=== PATIENT | female | born 1955 | race African-American/Black ===

== ENCOUNTER 2020-01-25 19:51 | Inpatient (IN) ==
[2020-01-25] MEDS ORDERED: SODIUM CHLORIDE 0.9% 1,000 ML IV STA (20:46)
[2020-01-25 21:10] LABS: ABG Base Excess 5.1 MMOL/L (-2.5-2.5); ABG HCO3 28.9 MMOL/L (20-26); ABG Oxygen Saturation 97.7 % (95-100); ABG PCO2 39.8 MM HG (35-48); ABG PH 7.479 (7.35-7.45); ABG PO2 103.6 MM HG (80-95); ABG TCO2 30.1 MMOL/L (23-27); Allen Test Positive
[2020-01-25 21:16] LABS: Basophils % 0.1 % (0.0-0.8); Hematocrit 36.9 VOL% (35.7-47.0); Hemoglobin 12.1 GM/DL (12.0-16.0); Immature Granulocytes % 0.9 %; Immature Granulocytes Absolute 0.09 #; Lymphocytes # 0.6 10*3/uL (1.4-4.0); Lymphocytes % 5.5 % (21.3-54.2); Mean Corpuscular HGB Conc 32.8 GM/DL (32-36); Mean Corpuscular Volume 71.2 FL (87-102); Mean Platelet Volume 12.7 FL (9.6-12.0); Monocytes % 2.5 % (1.7-12.7); Platelet Count 271 T/CUMM (130-400); Red Blood Count 5.18 MC/CUMM (3.8-5.5); Red Cell Distribution Width 14.7 % (9.3-17.3); White Blood Count 10.2 T/CUMM (4-12)
[2020-01-25 21:37] LABS: Albumin 2.4 G/DL (3.4-5.0); Bilirubin,Total 0.4 MG/DL (0.2-1.0); Calcium 8.6 MG/DL (8.5-10.1); Ferritin 415.5 ng/ml (8-252); Osmolality,Calculated 285.7 MOS/KG (273-304); Total Protein 7.8 G/DL (6.4-8.3)
[2020-01-25 22:05] LABS: Bilirubin,Urine Negative (Negative); Blood, Urine Negative (Negative); Glucose,Urine (UA) >=500 mg/dL (Negative); Ketones,Urine 5 mg/dL (Negative); Mucus,Urine Occasional /LPF (Occasional); Nitrite,Urine Negative (Negative); Protein,Urine Negative; RBC,Urine 4 /HPF (0-4); Squamous Epithelial Cell,Urine Occasional /HPF (0-10); Urine Appearance CLEAR (Clear); Urine Color Straw (Yellow); Urine Specific Gravity 1.027 (1.001-1.035); Urine Urobilinogen < 2.0 EU/DL (0.2-1.0); WBC,Urine <1 /HPF (0-6)
[2020-01-25] MEDS ORDERED: INSULIN REGULAR 100 UNIT/ML IV STA (22:53)
[2020-01-25] MEDS ORDERED: DOCUSATE SODIUM 100 MG CAPSULE PO PRN (23:02)
[2020-01-25] MEDS ORDERED: ONDANSETRON 4 MG/2 ML VIAL IV PRN (23:02)
[2020-01-25] MEDS ORDERED: GLUCAGON 1 MG VIAL IM PRN ×2 (23:02)
[2020-01-25] MEDS ORDERED: ZALEPLON 5 MG CAPSULE PO PRN (23:02)
[2020-01-25] MEDS ORDERED: DEXTROSE 50% 25 GM/50 ML VIAL IV PRN ×2 (23:02)
[2020-01-25] MEDS ORDERED: hydrALAZINE 20 MG/1 ML VIAL IV PRN (23:02)
[2020-01-25] MEDS ORDERED: ACETAMINOPHEN 325 MG TABLET PO PRN (23:02)
[2020-01-25] MEDS ORDERED: guaiFENesin/DM ER 600-30 MG TABLET PO PRN (23:02)
[2020-01-25] MEDS ORDERED: diphenhydrAMINE CAP 25 MG CAPSULE PO PRN (23:02)
[2020-01-25] MEDS ORDERED: NICOTINE 21 MG/24 HR PATCH TRANSDERM PRN (23:02)
[2020-01-25] MEDS ORDERED: AZITHROMYCIN INJ 500 MG in SODIUM CHLORIDE 0.9% 250 ML IV SCH (23:30)
[2020-01-25] MEDS: cefTRIAXone 1,000 MG in SYRINGE 1 EACH IV SCH (23:31)
[2020-01-26] MEDS: AZITHROMYCIN 250 MG TABLET PO SCH ×2 (01:07→21:52)
[2020-01-26] MEDS: SODIUM CHLORIDE 0.9% 1,000 ML IV SCH ×2 (01:08→12:33)
[2020-01-26] MEDS ORDERED: INFLUENZA VIRUS VACCINE 0.5 ML SYRINGE IM ONE (01:09)
[2020-01-26] MEDS ORDERED: PNEUMOCOCCAL VACCINE (13 VALENT) 0.5 ML SYRINGE IM ONE (01:15)
[2020-01-26 04:57] LABS: Basophils % 0.1 % (0.0-0.8); Hematocrit 33.3 VOL% (35.7-47.0); Hemoglobin 10.9 GM/DL (12.0-16.0); Immature Granulocytes % 0.8 %; Immature Granulocytes Absolute 0.08 #; Lymphocytes # 1.2 10*3/uL (1.4-4.0); Lymphocytes % 12.4 % (21.3-54.2); Mean Corpuscular HGB Conc 32.7 GM/DL (32-36); Mean Corpuscular Volume 71.3 FL (87-102); Mean Platelet Volume 11.6 FL (9.6-12.0); Monocytes % 5.1 % (1.7-12.7); Neutrophils % 81.6 % (38.7-73.9); Platelet Count 286 T/CUMM (130-400); Red Blood Count 4.67 MC/CUMM (3.8-5.5); Red Cell Distribution Width 14.5 % (9.3-17.3); White Blood Count 9.7 T/CUMM (4-12)
[2020-01-26 05:14] LABS: Calcium 8.3 MG/DL (8.5-10.1); Osmolality,Calculated 283.8 MOS/KG (273-304)
[2020-01-26] MEDS ORDERED: ESTRADIOL 1 MG TABLET PO SCH (09:00)
[2020-01-26] MEDS ORDERED: PANTOPRAZOLE 40 MG TABLET PO SCH (09:00)
[2020-01-26] MEDS: INSULIN REGULAR 100 UNIT/ML SUBCUT SCH ×4 (10:40→21:52)
[2020-01-26] MEDS: ENOXAPARIN 40 MG/0.4 ML SYRINGE SUBCUT SCH (10:41)
[2020-01-26] MEDS: atenoloL 50 MG TABLET PO SCH (10:41)
[2020-01-26] MEDS: CHLORTHALIDONE 25 MG TABLET PO SCH (12:56)
[2020-01-26] MEDS: DEXAMETHASONE 4 MG TABLET PO SCH (12:57)
[2020-01-27] MEDS: cefTRIAXone 1,000 MG in SYRINGE 1 EACH IV SCH (00:08)
[2020-01-27] MEDS: SODIUM CHLORIDE 0.9% 1,000 ML IV SCH (00:34)
[2020-01-27 05:10] LABS: Basophils % 0.1 % (0.0-0.8); Eosinophils % 0.1 % (0.00-10.9); Hematocrit 36.2 VOL% (35.7-47.0); Hemoglobin 11.5 GM/DL (12.0-16.0); Immature Granulocytes % 0.8 %; Immature Granulocytes Absolute 0.07 #; Lymphocytes # 1.2 10*3/uL (1.4-4.0); Mean Corpuscular HGB Conc 31.8 GM/DL (32-36); Mean Corpuscular Volume 72.4 FL (87-102); Mean Platelet Volume 12.5 FL (9.6-12.0); Monocytes % 4.1 % (1.7-12.7); Neutrophils % 81.9 % (38.7-73.9); Platelet Count 362 T/CUMM (130-400); Red Cell Distribution Width 14.6 % (9.3-17.3); White Blood Count 8.9 T/CUMM (4-12)
[2020-01-27 05:32] LABS: Calcium 7.9 MG/DL (8.5-10.1); Osmolality,Calculated 283.1 MOS/KG (273-304)
[2020-01-27 05:33] LABS: Ferritin 341.7 ng/ml (8-252)
[2020-01-27] MEDS: INSULIN REGULAR 100 UNIT/ML SUBCUT SCH ×4 (07:54→20:33)
[2020-01-27] MEDS ORDERED: AZITHROMYCIN 250 MG TABLET PO ONE (08:35)
[2020-01-27] MEDS: ASCORBIC ACID 500 MG TABLET PO SCH ×2 (10:19→20:36)
[2020-01-27] MEDS: ZINC GLUCONATE 50 MG TABLET PO SCH (10:19)
[2020-01-27] MEDS: ENOXAPARIN 40 MG/0.4 ML SYRINGE SUBCUT SCH (10:19)
[2020-01-27] MEDS: CHLORTHALIDONE 25 MG TABLET PO SCH (10:19)
[2020-01-27] MEDS: CETIRIZINE 10 MG TABLET PO SCH (10:19)
[2020-01-27] MEDS: CHOLECALCIFEROL 1,000 UNIT TABLET PO SCH (10:19)
[2020-01-27] MEDS: FAMOTIDINE 20 MG TABLET PO SCH ×2 (10:19→20:36)
[2020-01-27] MEDS: atenoloL 50 MG TABLET PO SCH (10:19)
[2020-01-27] MEDS: DEXAMETHASONE 4 MG TABLET PO SCH (10:19)
[2020-01-28] MEDS: cefTRIAXone 1,000 MG in SYRINGE 1 EACH IV SCH (00:15)
[2020-01-28 05:53] LABS: Basophils % 0.1 % (0.0-0.8); Eosinophils # 0.1 10*3/uL (0.0-0.87); Eosinophils % 0.6 % (0.00-10.9); Hematocrit 38.2 VOL% (35.7-47.0); Hemoglobin 12.1 GM/DL (12.0-16.0); Immature Granulocytes % 1.2 %; Immature Granulocytes Absolute 0.11 #; Lymphocytes # 1.6 10*3/uL (1.4-4.0); Lymphocytes % 18.4 % (21.3-54.2); Mean Corpuscular HGB Conc 31.7 GM/DL (32-36); Mean Corpuscular Volume 72.3 FL (87-102); Monocytes % 7.6 % (1.7-12.7); Neutrophils % 72.1 % (38.7-73.9); Red Blood Count 5.28 MC/CUMM (3.8-5.5); Red Cell Distribution Width 14.7 % (9.3-17.3); White Blood Count 8.9 T/CUMM (4-12)
[2020-01-28 05:58] LABS: Platelet Count 271 T/CUMM (130-400)
[2020-01-28 06:14] LABS: Calcium 8.5 MG/DL (8.5-10.1); Osmolality,Calculated 277.4 MOS/KG (273-304)
[2020-01-28 06:17] LABS: Ferritin 314.7 ng/ml (8-252)
[2020-01-28 06:19] LABS: Hypochromasia 1+; Platelet Estimate Adequate
[2020-01-28] MEDS: INSULIN LISPRO 100 UNIT/ML SUBCUT SCH ×2 (08:20→11:35)
[2020-01-28] MEDS: INSULIN REGULAR 100 UNIT/ML SUBCUT SCH ×2 (08:20→11:35)
[2020-01-28] MEDS: atenoloL 50 MG TABLET PO SCH (08:45)
[2020-01-28] MEDS: FAMOTIDINE 20 MG TABLET PO SCH (08:45)
[2020-01-28] MEDS: ZINC GLUCONATE 50 MG TABLET PO SCH (08:45)
[2020-01-28] MEDS: CHOLECALCIFEROL 1,000 UNIT TABLET PO SCH (08:45)
[2020-01-28] MEDS: CETIRIZINE 10 MG TABLET PO SCH (08:45)
[2020-01-28] MEDS: CHLORTHALIDONE 25 MG TABLET PO SCH (08:45)
[2020-01-28] MEDS: ASCORBIC ACID 500 MG TABLET PO SCH (08:45)
[2020-01-28] MEDS: DEXAMETHASONE 4 MG TABLET PO SCH (08:45)
[2020-01-28] MEDS: ENOXAPARIN 40 MG/0.4 ML SYRINGE SUBCUT SCH (08:45)
[2020-01-28] MEDS ORDERED: amLODIPine 5 MG TABLET PO SCH (09:00)
[2020-01-28] MEDS ORDERED: INSULIN GLARGINE 100 UNIT/ML SUBCUT SCH (09:00)
[2020-01-28 11:13] VITALS: BP 127/72
== END 2020-01-28 15:40 | disposition home or self-care (01) | DRG 177 ==
LOC: N.ED 19:51 → SUATTDRO 23:02 → N.EDINP 23:02 → N.2E 23:56
PROVIDERS: ADMIT Internal Medicine Geriatric Medicine; ATTEND Family Medicine